=== PATIENT | female | born 1955 | race Caucasian/White ===

== ENCOUNTER → 2017-04-11 | Outpatient (CLI) | payer OTHER ==
--- NOTE | 2017-04-11 10:15 | REPMRS ---
Patient History The patient states she has not had a clinical breast exam in over a year. Patient is postmenopausal. Family history of breast cancer in mother at age 50 or over. Digital Woman Screen Mammo: April 11, 2017 - Exam #: [id number] Bilateral CC and MLO view(s) were taken. Technologist: Yanique Kwan Technologist Prior study comparison: February 07, 2016, digital woman screen mammo performed at [facility]. January 12, 2015, digital woman screen mammo performed at [facility]. January 07, 2014, digital woman screen mammo performed at [facility]. FINDINGS: The breast tissue is extremely dense which could obscure a lesion on mammography. There is an extremely dense symmetrical pattern of residual fibroglandular tissue. There has been no change in the appearance of the mammogram from the previous studies. There is no interval development of dominant mass, archetectural distortion, or microcalcific cluster suggestive of malignancy. ASSESSMENT: BI-RADS/ACR category 2 mammogram. Benign finding(s). Recommendation Routine screening mammogram of both breasts in 1 year (for women over age 40). This mammogram was interpreted with the aid of an FDA-approved computer-aided dectection system. Electronically Signed By: Damien Jeffries MD 04/11/17 1014
== END ==
LOC: M WHC 09:20
PROVIDERS: ATTEND Internal Medicine
DX: Z12.31 Encounter for screening mammogram for malignant neoplasm of breast (principal)

== ENCOUNTER → 2017-05-20 | Outpatient (REF) | payer OTHER | LOC: M LAB REF 17:23 | PROVIDERS: ATTEND Internal Medicine | DX: E03.9 Hypothyroidism, unspecified (principal) ==

== ENCOUNTER → 2017-06-18 | Outpatient (REF) | payer OTHER | LOC: M LAB REF 16:14 | PROVIDERS: ATTEND Nurse Practitioner Adult Health | DX: E05.90 Thyrotoxicosis, unspecified without thyrotoxic crisis or storm (principal) ==

== ENCOUNTER → 2017-07-09 | Outpatient (CLI) | payer OTHER ==
--- NOTE | 2017-07-10 09:43 | DEXA ---
AP SPINE L1 - L4 0.955 -1.9 -0.4 LT FEMUR TOTAL 0.721 -2.3 -1.1 RT FEMUR TOTAL 0.742 -2.1 -1.0 TOTAL BODY TOTAL OTHER DUAL FEMUR FRAX* ASSESSMENT Risk factors: 10 year probability of fracture Major osteoporotic fracture % Hip fracture % COMMENTS: There is low bone density of the spine and hips. The increased density of the spine does not represent a significant change. The increased density of the left hip does not represent a significant change. The increased density of the right hip does represent a significant change. The density of the spine has decreased 3.5% since the initial exam on 07/2004. The spine density has increased 1.6% since the most recent exam on 12/2014. The density of the left hip has decreased 13.8% since the initial exam on 2003. The density of the left hip has increased 0.6% since the most recent exam on 2014. The density of the right hip has decreased 14.3% since the initial exam on 2003. The density of the right hip has increased 2.9% since the most recent exam on 2014. FOLLOW-UP: Recommendation for the next bone density exam: 2 years. JAQUELINED
== END ==
LOC: M WHC 09:46
PROVIDERS: ATTEND Nurse Practitioner Adult Health
DX: M81.0 Age-related osteoporosis without current pathological fracture (principal)

== ENCOUNTER → 2017-08-25 | Outpatient (REF) | payer OTHER | LOC: M LAB REF 17:57 | PROVIDERS: ATTEND Nurse Practitioner Adult Health | DX: E05.90 Thyrotoxicosis, unspecified without thyrotoxic crisis or storm (principal) ==

== ENCOUNTER → 2018-04-16 | Outpatient (CLI) | payer OTHER | LOC: M WHC 10:13 | DX: Z12.31 Encounter for screening mammogram for malignant neoplasm of breast (principal); Z78.0 Asymptomatic menopausal state | CPT/HCPCS: 77067 ==

== ENCOUNTER → 2019-04-28 | Outpatient (CLI) | payer MEDICARE, OTHER ==
--- NOTE | 2019-04-28 15:52 | REPMRS ---
Patient History The patient states she has not had a clinical breast exam in over a year. Family history of breast cancer at age 50 or over in mother, colorectal cancer at age 50 or over in father. No Hormone Replacement Therapy 3D TOMOSYNTHESIS WAS PERFORMED. The [facility] lifetime risk for breast cancer is 15.7%. Digital Woman Screen Mammo: April 28, 2019 - Exam #: [id number] Bilateral CC and MLO view(s) were taken. Technologist: Xochitl Garcia, Technologist Prior study comparison: April 16, 2018, bilateral digital woman screen mammo performed at [facility]. April 11, 2017, digital woman screen mammo performed at [facility]. FINDINGS: The breast tissue is extremely dense which could obscure a lesion on mammography. There is no evidence of cancer on this mammogram. Assessment: BI-RADS/ACR category 2 mammogram. Benign Findings. Recommendation Routine screening mammogram of both breasts in 1 year (for women over age 40). This mammogram was interpreted with the aid of an FDA-approved computer-aided dectection system. Electronically Signed By: William Jarrett MD 04/28/19 1652
== END ==
LOC: M WHC 13:45
PROVIDERS: ATTEND Internal Medicine
DX: Z12.31 Encounter for screening mammogram for malignant neoplasm of breast (principal); Z80.3 Family history of malignant neoplasm of breast; Z80.0 Family history of malignant neoplasm of digestive organs

== ENCOUNTER → 2019-07-13 | Outpatient (CLI) | payer MEDICARE, OTHER ==
--- NOTE | 2019-07-19 15:56 | DEXA ---
AP SPINE L1 - L4 0.977 -1.8 -0.2 LT FEMUR TOTAL 0.728 -2.2 -1.0 LT NECK 0.754 -2.0 -0.5 RT FEMUR TOTAL 0.744 -2.1 -0.9 RT NECK 0.770 -1.9 -0.4 TOTAL BODY TOTAL OTHER COMMENTS: There is low bone density of the spine and hips. The increased density of the spine does represent a significant change. The increased density of the left hip does not represent a significant change. The increased density of the right hip does not represent a significant change. The density of the spine has decreased 1.3% since the initial exam on 07/27/2004. The spine density has increased 2.3% since the most recent exam on 07/09/2017. The density of the left hip has decreased 12.9% since the initial exam on 07/27/2004. The density of the left hip has increased 1.0% since the most recent exam on 07/09/2017. The density of the right hip has decreased 14.1% since the initial exam on 07/27/2004. The density of the right hip has increased 0.3% since the most recent exam on 07/09/2017. FOLLOW-UP: Recommendation for the next bone density exam: 2 years. RADHA
== END ==
LOC: M WHC 13:04
PROVIDERS: ATTEND Internal Medicine
DX: M81.0 Age-related osteoporosis without current pathological fracture (principal)

== ENCOUNTER → 2019-11-08 | Outpatient (CLI) | payer MEDICARE, OTHER ==
--- NOTE | 2019-11-08 11:09 | REP ---
Clinical: Flu-like symptoms . Comparison: None . Technique: PA and lateral. Findings: The mediastinum and cardiac silhouette are normal. The lung ruiz demonstrate chronic emphysematous changes without acute consolidation, effusion, or pneumothorax. The skeletal structures are intact and normal. Impression: 1. No acute cardiopulmonary process. Electronically Signed by Ash Funez MD 11/08/2019 11:00 A
== END ==
LOC: M WUC 10:49
PROVIDERS: ATTEND Physician Assistant
DX: J11.1 Influenza due to unidentified influenza virus with other respiratory manifestations (principal)

== ENCOUNTER → 2020-06-07 | Outpatient (CLI) | payer MEDICARE, OTHER ==
--- NOTE | 2020-06-07 16:43 | REPMRS ---
Patient History The patient states she had a clinical breast exam in May 2020.Family history of breast cancer at age 50 or over in mother, colorectal cancer at age 50 or over in father. No Hormone Replacement Therapy Digital Woman Screen Mammo: June 07, 2020 - Exam #: [id number] Bilateral CC and MLO view(s) were taken. Technologist: Emmy Brunner, Technologist Prior study comparison: April 28, 2019, bilateral digital woman screen mammo performed at [facility]. April 16, 2018, bilateral digital woman screen mammo performed at [facility]. April 11, 2017, digital woman screen mammo performed at [facility]. FINDINGS: The breast tissue is heterogeneously dense. This may lower the sensitivity of mammography. The Volpara volumetric breast density category is: C. There is a moderate amount of heterogeneously dense fibroglandular tissue which is fairly symmetric. There is no interval development of dominant mass, architectural distortion, or grouped microcalcification typical of malignancy. There has been no change in the appearance of the mammogram from the prior studies. 3-D tomosynthesis shows no additional findings. Assessment: BI-RADS/ACR category 1 mammogram. Negative Mammogram. Recommendation Routine screening mammogram of both breasts in 1 year (for women over age 40). This patient's Lifetime Breast Cancer RIsk is estimated at 15.0 %. This mammogram was interpreted with the aid of an FDA-approved computer-aided dectection system. Electronically Signed By: Damien Jeffries MD 06/07/20 0120
== END ==
LOC: M WHC 12:57
PROVIDERS: ATTEND Internal Medicine
DX: Z12.31 Encounter for screening mammogram for malignant neoplasm of breast (principal); Z80.3 Family history of malignant neoplasm of breast; Z80.0 Family history of malignant neoplasm of digestive organs

== ENCOUNTER → 2021-07-03 | Outpatient (CLI) | payer MEDICARE, OTHER ==
[~2021-07-03] MED LIST: CALC500C16 PO; SERT-141 PO; VITMTA PO
--- NOTE | 2021-07-03 12:19 | REP ---
INDICATION: [facility] SCREEN MAMMO FOR MALIGNANT NEOPLASM OF BREAST. COMPARISON: 06/07/2020 as well as other prior exams. TECHNIQUE: MLO and CC views bilateral breasts with tomosynthesis. FINDINGS: Breast parenchyma is heterogeneously dense, limiting the sensitivity of the mammogram. There may be a developing area of architectural distortion focally in the upper inner left breast. Otherwise no change in the parenchymal pattern is appreciated bilaterally with no new mass or clustered microcalcifications. The Volpara volumetric breast density pattern is D. IMPRESSION: BIRADS/ACR category 0, incomplete. Possible focal area of architectural distortion in the upper inner left breast. Recommend spot compression views left breast, left mL tomographic sequence and ultrasound to further evaluate. This patient's Tyrer-Cuzick lifetime breast cancer risk assessment score is 14.2%. This mammogram was interpreted with the aid of an FDA-approved computer-aided detection system. The patient states she had a clinical breast exam in over 1 year ago. The patient letter being requested is M0. RECOMMENDATION: Recommend additional mammographic and sonographic imaging left breast as discussed above. <Electronically signed by William Jarrett > 07/03/21 [id number]
== END ==
LOC: M WHC 10:41
PROVIDERS: ATTEND Internal Medicine
DX: R92.2 Inconclusive mammogram (principal)

== ENCOUNTER → 2021-07-17 | Outpatient (CLI) | payer MEDICARE, OTHER ==
--- NOTE | 2021-07-17 12:40 | DEXAMM ---
INDICATION: [facility] SCREEN MAMMO FOR MALIGNANT SAMIA OF BREAST. COMPARISON: 07/13/2019 as well as other prior exams. TECHNIQUE: Bone density was measured using dual-energy x-ray absorptiometry (DEXA). FINDINGS: AP SPINE L1-L4 BMD 0.889 g/cm2 Young Adult T-Score -2.5 Age Matched Z-Score -0.8. LT FEMUR, TOTAL BMD 0.758 g/cm2 Young Adult T-Score -2.0 Age Matched Z-Score -0.6. LT NECK BMD 0.786 g/cm2 Young Adult T-Score -1.8 Age Matched Z-Score -0.2. RT FEMUR, TOTAL BMD 0.776 g/cm2 Young Adult T-Score -1.8 Age Matched Z-Score -0.5. RT NECK BMD 0.811 g/cm2 Young Adult T-Score -1.6 Age Matched Z-Score 0.0. IMPRESSION: There is low bone density of the spine. There is low bone density of the left hip. There is low bone density of the right hip. The density of the spine has decreased 10.2% since the initial exam on 07/27/2004. The density of the spine decreased 1.3% since most recent exam on 07/09/2017. The density of the left hip has decreased 9.3% since initial exam on 07/27/2004. The density of the left hip has increased 4.1% since most recent exam on 07/13/2019. The density of the right hip has decreased 10.4% since the initial exam on 07/27/2004. The density of the right hip has increased 4.3% since the most recent exam on 07/13/2019. FOLLOW-UP: Recommendation for the next bone density exam: 2 years. <Electronically signed by William Jarrett > 07/17/21 [id number]
== END ==
LOC: M WHC 09:40
PROVIDERS: ATTEND Internal Medicine
DX: Z12.31 Encounter for screening mammogram for malignant neoplasm of breast (principal); M81.0 Age-related osteoporosis without current pathological fracture

== ENCOUNTER → 2021-08-10 | Outpatient (CLI) | payer MEDICARE, OTHER ==
--- NOTE | 2021-08-10 15:34 | REP ---
INDICATION: INCOMPLETE MAMMO LT BREAST. Architectural distortion COMPARISON: Screening mammogram, 07/03/2021. TECHNIQUE: 2D and 3D focal compression CC and MLO spot images of the left breast were obtained. Targeted left breast ultrasound was performed. FINDINGS: The Volpara volumetric breast density pattern is D, the breast is extremely dense, which lowers the sensitivity of mammography. The area of architectural distortion is best seen on the MLO view, mammographically. Left breast ultrasound: 11 o'clock, 5 cm from the nipple, 10 x 9 x 6 mm, irregular, parallel, hypoechoic mass with an indistinct margin and posterior shadowing. Shear wave elastography measures 194 kPa. IMPRESSION: BIRADS/ACR : Category 4: Suspicious abnormality. The patient letter being requested is M4. RECOMMENDATION: Ultrasound-guided biopsy of the suspicious abnormality in the left breast. <Electronically signed by Joe Vaughan > 08/10/21 1547
== END ==
LOC: M WHC 13:04
PROVIDERS: ATTEND Internal Medicine
DX: Z12.31 Encounter for screening mammogram for malignant neoplasm of breast (principal); N64.89 Other specified disorders of breast
CPT/HCPCS: 76642; 77065; G0279

== ENCOUNTER → 2021-09-04 | Outpatient (CLI) | payer MEDICARE, OTHER ==
[~2021-09-04] MED LIST changes: +**SFHN** SODIUM BICARBONATE 8.4% 10MEQ 10ML VIAL ONE; +LIDOCAINE 1% MDV 20ML VIAL ONE
[2021-09-04 08:51] VITALS: BP 178/92
--- NOTE | 2021-09-04 10:07 | REP ---
INDICATION: U/S GUIDED BX LUMP IN LEFT BREAST. COMPARISON: Diagnostic left mammogram, 08/10/2021 TECHNIQUE: Following ultrasound-guided biopsy, 2D cc and MLO views of the left breast were performed. FINDINGS: The biopsy clip is noted in the area of thesuspicious abnormality seen on the prior exam. IMPRESSION: BIRADS/ACR : Category 2: Benign finding. RECOMMENDATION: Follow-up as clinically warranted. <Electronically signed by Joe Vaughan > 09/04/21 1000
--- NOTE | 2021-09-04 17:41 | REP ---
INDICATION: U/S GUIDED BX LUMP IN LEFT BREAST. COMPARISON: None. TECHNIQUE: The procedure was performed by AURY Dumont, under the direct supervision of Dr. Vaughan. The risks and benefits of the procedure were explained to the patient and an informed consent was obtained both verbally and written. Directly prior to the start of the procedure a formal time-out was completed in the procedure room. FINDINGS: The left breast mass was localized using ultrasound guidance.. The skin was prepped and draped in a sterile fashion. Twenty mL of buffered lidocaine was used as a local anesthetic. Using ultrasound guidance a 14 gauge Bard marquee needle biopsy system was inserted and advanced into the left breast mass. Five core biopsy specimens were obtained. A marker clip was placed at the biopsy site. The patient tolerated the procedure well and there were no immediate complications. After the appropriate amount of monitored convalescence the patient was discharged from the department. IMPRESSION: Ultrasound-guided biopsy and micro clip placement of the left breast. <Electronically signed by Priti Back > 09/04/21 1016 <Electronically signed by Joe Vaughan > 09/04/21 [id number]
== END ==
LOC: M WHCPRO 07:32
PROVIDERS: ATTEND Internal Medicine
DX: C50.912 Malignant neoplasm of unspecified site of left female breast (principal)

== ENCOUNTER → 2021-11-15 | Outpatient (CLI) | payer MEDICARE, OTHER ==
[~2021-11-15] MED LIST changes: -**SFHN** SODIUM BICARBONATE 8.4% 10MEQ 10ML VIAL ONE; +BIOT10009 PO; +BONI1TAB PO; +CIDA500T2 PO; +D-40TAB2 PO; +LETR2.5T2 PO; -LIDOCAINE 1% MDV 20ML VIAL ONE; +PRESCAP PO; +VITA400C56 PO
== END ==
LOC: M ONCR 13:48
PROVIDERS: ATTEND Radiology Radiation Oncology
DX: C50.212 Malignant neoplasm of upper-inner quadrant of left female breast (principal); D05.02 Lobular carcinoma in situ of left breast; Z80.3 Family history of malignant neoplasm of breast

== ENCOUNTER → 2021-12-20 | Outpatient (RCR) | payer MEDICARE, OTHER | LOC: M ONCR 11-27 09:12 | PROVIDERS: ATTEND General Practice | DX: C50.212 Malignant neoplasm of upper-inner quadrant of left female breast (principal) ==

== ENCOUNTER 2022-01-07 09:28 | Outpatient (RCR) | payer MEDICARE, OTHER | END 2022-01-19 | LOC: M ONCR 09:28 | PROVIDERS: ATTEND General Practice | DX: C50.212 Malignant neoplasm of upper-inner quadrant of left female breast (principal) ==

== ENCOUNTER → 2022-07-10 | Outpatient (CLI) | payer MEDICARE, OTHER | LOC: M ONCR 10:11 | PROVIDERS: ATTEND General Practice | DX: Z08 Encounter for follow-up examination after completed treatment for malignant neoplasm (principal); Z85.3 Personal history of malignant neoplasm of breast; R23.4 Changes in skin texture; Z79.811 Long term (current) use of aromatase inhibitors; Z79.899 Other long term (current) drug therapy; Z92.3 Personal history of irradiation ==

== ENCOUNTER → 2023-04-30 | Outpatient (REF) | payer MEDICARE, OTHER | LOC: M LAB REF 11:43 | PROVIDERS: ATTEND Nurse Practitioner Family | DX: R30.0 Dysuria (principal) ==

== ENCOUNTER → 2023-07-10 | Outpatient (CLI) | payer MEDICARE, OTHER | LOC: M ONCR 10:05 | PROVIDERS: ATTEND Radiology Radiation Oncology | DX: C50.212 Malignant neoplasm of upper-inner quadrant of left female breast (principal); N64.59 Other signs and symptoms in breast; R92.333 Mammographic heterogeneous density, bilateral breasts; Z71.2 Person consulting for explanation of examination or test findings; Z79.811 Long term (current) use of aromatase inhibitors; Z79.899 Other long term (current) drug therapy ==

== ENCOUNTER → 2023-11-18 | Outpatient (REF) | payer MEDICARE, OTHER | LOC: M LAB REF 12:36 | PROVIDERS: ATTEND Internal Medicine | DX: Z79.899 Other long term (current) drug therapy (principal) ==

== ENCOUNTER → 2024-05-19 | Outpatient (REF) | payer MEDICARE, OTHER | LOC: M LAB REF 12:42 | PROVIDERS: ATTEND Internal Medicine | DX: Z79.899 Other long term (current) drug therapy (principal) ==

== ENCOUNTER → 2024-07-13 | Outpatient (CLI) | payer MEDICARE, OTHER | LOC: M ONCR 10:00 | PROVIDERS: ATTEND General Practice | DX: Z08 Encounter for follow-up examination after completed treatment for malignant neoplasm (principal); Z85.3 Personal history of malignant neoplasm of breast; Z92.3 Personal history of irradiation; Z79.811 Long term (current) use of aromatase inhibitors; Z79.620 Long term (current) use of immunosuppressive biologic; Z79.899 Other long term (current) drug therapy; Z98.890 Other specified postprocedural states ==

== ENCOUNTER → 2024-11-25 | Outpatient (REF) | payer MEDICARE, OTHER | LOC: M LAB REF 13:00 | PROVIDERS: ATTEND Internal Medicine | DX: M81.0 Age-related osteoporosis without current pathological fracture (principal); Z79.899 Other long term (current) drug therapy ==

== ENCOUNTER → 2025-06-07 | Outpatient (REF) | payer MEDICARE, OTHER | LOC: M LAB REF 14:43 | PROVIDERS: ATTEND Internal Medicine | DX: M81.0 Age-related osteoporosis without current pathological fracture (principal); Z79.899 Other long term (current) drug therapy ==

== ENCOUNTER → 2025-07-11 | Outpatient (CLI) | payer MEDICARE, OTHER | LOC: M WHC 11:19 | PROVIDERS: ATTEND Internal Medicine Hematology & Oncology | DX: C50.912 Malignant neoplasm of unspecified site of left female breast (principal); M85.89 Other specified disorders of bone density and structure, multiple sites; Z79.899 Other long term (current) drug therapy ==

== ENCOUNTER → 2025-07-15 | Outpatient (CLI) | payer MEDICARE, OTHER | LOC: M ONCR 09:57 | PROVIDERS: ATTEND General Practice | DX: Z08 Encounter for follow-up examination after completed treatment for malignant neoplasm (principal); Z85.3 Personal history of malignant neoplasm of breast; Z98.890 Other specified postprocedural states; Z92.3 Personal history of irradiation; Z79.620 Long term (current) use of immunosuppressive biologic; Z79.811 Long term (current) use of aromatase inhibitors; Z79.899 Other long term (current) drug therapy; Z90.12 Acquired absence of left breast and nipple ==